=== PATIENT | male | born 1965 | race African-American/Black ===

== ENCOUNTER → 2016-04-11 | Outpatient (CLI) | payer OTHER ==
[~2016-04-11] MED LIST: BENTYL10 MG PO; CIPRO500 MG PO; COLACE100 MG PO; FLEXERIL5 M1 PO; HYDROCODON-ACE1 EAC7 PO; HYDROMORPHONE HC4 MG PO; MILK OF MAGN PO; Motrin PO; NOHOMEMEDS; NORCO 5/3251 TABLET PO; OMEPRAZOLE40 M1 PO; VICODIN 5-3001 EACH PO; VOLTAREN75 MG PO; ZOFRAN ODT4 MG PO
== END | disposition home or self-care (01) ==
LOC: NUC 04-01 11:00
DX: M26.603 Bilateral temporomandibular joint disorder, unspecified (principal)
CPT/HCPCS: 78315; A9503

== ENCOUNTER → 2017-08-31 | Outpatient (CLI) | payer OTHER | END | disposition home or self-care (01) | LOC: RES 07:51 | DX: Z02.71 Encounter for disability determination (principal) | CPT/HCPCS: 94010; 94729; 94760 ==